=== PATIENT | female | born 1985 ===

== ENCOUNTER → 2024-04-03 09:38 | Outpatient (REF) | payer BC, SELFPAY ==
[2024-04-03 10:38] LABS: % Basophils 0.5 % (0-2); % Eosinophils 4.4 % (0-6); % Immature Granulocytes 0.4 % (0-0.5); % Lymphocytes 28.1 % (20.5-51.1); % Monocytes 5.6 % (1.7-9.3); Absolute Eosinophils 0.4 10^3/uL (0-0.7); Absolute Lymphocytes 2.3 10^3/uL (1.2-3.4); Absolute Monocytes 0.5 10^3/uL (0.1-0.6); Absolute Neutrophils 4.9 10^3/uL (1.4-6.5); Hematocrit 44.1 % (37.0-47.0); Hemoglobin 15.3 g/dL (12.0-16.0); Mean Corp Hgb Conc. 34.7 g/dL (33.0-37.0); Mean Corpuscular Hgb 31.4 pg (27.0-31.0); Mean Corpuscular Volume 90.6 fL (81.0-99.0); Mean Platelet Volume 11.3 fL (7.4-10.4); Nucleated Red Blood Cells % 0 %; Platelet Count 143 10^3/uL (130-400); Red Blood Cell Count 4.87 10^6/uL (4.20-5.40); Red Cell Dist. Width 13.2 % (11.5-14.5)
[2024-04-03 11:05] LABS: ALT (SGPT) 11 U/L (0-35); AST (SGOT) 20 U/L (14-36); Alkaline Phosphatase 71 U/L (38-126); Blood Urea Nitrogen 12 mg/dl (7-17); Calcium 10.4 mg/dl (8.4-10.2); Carbon Dioxide 26 mmol/L (22-30); Chloride 105 mmol/L (98-107); Glucose 81 mg/dl (70-99); HDL Cholesterol 53 mg/dl; LDL Cholesterol, Calculated 131 mg/dl; Potassium 4.5 mmol/L (3.5-5.1); Sodium 143 mmol/L (135-145); Total Bilirubin 0.7 mg/dl (0.2-1.3); Total Cholesterol 200 mg/dl (50-199); Total Protein 7.3 g/dl (6.3-8.2); Triglyceride 84 mg/dl (10-149); Very Low Density Lipoprotein 16 mg/dl (0-30); eGFR > 60.00
[2024-04-03 11:23] LABS: Vitamin D, 25-OH*** 28.4 ng/mL (30-80)
[2024-04-03 11:36] LABS: TSH 0.57 uIU/ml (0.47-4.68)
== END ==
LOC: REG 09:38
PROVIDERS: ATTENDING PHYSICIAN Family Medicine
DX: Z00.00 Encounter for general adult medical examination without abnormal findings (principal)
CPT/HCPCS: 36415; 80053; 80061; 82306; 84443; 85025

== ENCOUNTER 2024-06-10 07:19 | Emergency (ER) | payer OTHER, SELFPAY ==
[2024-06-10 07:20] VITALS: BP 133/88
--- NOTE | 2024-06-10 08:06 | ED.GENMED ---
History of Present Illness
<Marlyn Vo MD, Resident - Last Filed: 06/10/24 10:41>
General
Chief Complaint: Eye Problems
Source: patient
Exam Limitations: none
Time Seen by Provider: 06/10/24 07:25
History of Present Illness
History of Present Illness:
This is a 39-year-old female patient with no significant PMH who presents to the ED with concerns of eye trauma. She states that around 15 minutes ago while she was at work ([employer]), she had hit her right eye with the corner of
it wooden chair. She does admit to having severe nausea and a right-sided headache with a throbbing sensation. She states that she did not notice any bleeding. She denies any vision changes or vomiting. She is able to slowly open her right eye
although with difficulty and pain.
Past History
<Marlyn Vo MD, Resident - Last Filed: 06/10/24 10:41>
Past History
ED Past Medical History: Other (IBS, endometriosis)
ED Past Surgical History: None
Social History
Tobacco: Non-smoker
Alcohol: None
Drug: None
Employment: Employed
Review of Systems
<Marlyn Vo MD, Resident - Last Filed: 06/10/24 10:41>
Review of Systems
Constitutional: Denies fever or chills
EENT: Reports other (R eye pain)
Cardiac: Denies chest pain
ABD/GI: Denies abdominal pain
Phy Exam
<Marlyn Vo MD, Resident - Last Filed: 06/10/24 10:41>
General Physical Exam
General Presentation: well appearing
Eye Exam
Eye Exam: PERRL, EOMI, conjunctiva normal, globe normal and visual acuity normal
Right 20/: 20
Left 20/: 20
Cornea Exam: abrasion: Right (around 6 o'clock position)
Type of Exam: slit lamp and fluorescein
Tonometry: Side: Bilateral ( Right- 21, Left-13)
Cardiovascular Exam
Cardiovascular Exam: regular rate/rhythm
Heart Sounds: normal
Pulmonary Exam
Pulmonary Exam: lungs clear
Gastrointestinal Exam
Gastrointestinal Exam: non tender, soft and non distended
Neurological Exam
Neurological Exam: oriented x3
Musculoskeletal Exam
Musculoskeletal Exam: no edema
Skin Exam
Skin Exam: warm/dry
Course
<Marlyn Shasha Vo MD, Resident - Last Filed: 06/10/24 10:41>
Orders/Labs/Results
Orders:
Orders
06/10/24 07:43
Ondansetron Orally Disint [Zofran Odt (Orally Disintegrating)] 4 mg .ROUTE .STK-MED ONE
06/10/24 08:03
CT Orbits W/o Iv Contrast Urgent
Comment:
Reason For Exam: r eye trauma
Ibuprofen [Motrin] 600 mg PO NOW STA
Test Result ONCE
06/10/24 08:09
HCG, Urine Qualitative Screen Urgent
Date Specimen was Collected: 06/10/24
Time Specimen was Collected: 08:06
06/10/24 08:14
Ondansetron Orally Disint [Zofran Odt (Orally Disintegrating)] 4 mg PO NOW STA
Vital Signs
Initial and Last Documented VS:
Initial Vital Signs
Temp Pulse Resp BP Pulse Ox
98.4 F 95 16 133/88 98
06/10/24 07:20 06/10/24 07:20 06/10/24 07:20 06/10/24 07:20 06/10/24 07:20
Last Documented Vital Signs
Temp Pulse Resp BP Pulse Ox
98.4 F 64 16 116/63 100
06/10/24 07:20 06/10/24 09:30 06/10/24 09:30 06/10/24 09:30 06/10/24 09:30
<Yrn Medina DO - Last Filed: 06/10/24 13:11>
Orders/Labs/Results
Orders:
Orders
06/10/24 07:43
Ondansetron Orally Disint [Zofran Odt (Orally Disintegrating)] 4 mg .ROUTE .ST-MED ONE
06/10/24 08:03
CT Orbits W/o Iv Contrast Urgent
Comment:
Reason For Exam: r eye trauma
Ibuprofen [Motrin] 600 mg PO NOW STA
Test Result ONCE
06/10/24 08:09
HCG, Urine Qualitative Screen Urgent
Date Specimen was Collected: 06/10/24
Time Specimen was Collected: 08:06
06/10/24 08:14
Ondansetron Orally Disint [Zofran Odt (Orally Disintegrating)] 4 mg PO NOW STA
Vital Signs
Initial and Last Documented VS:
Initial Vital Signs
Temp Pulse Resp BP Pulse Ox
98.4 F 95 16 133/88 98
06/10/24 07:20 06/10/24 07:20 06/10/24 07:20 06/10/24 07:20 06/10/24 07:20
Last Documented Vital Signs
Temp Pulse Resp BP Pulse Ox
98.4 F 64 16 116/63 100
06/10/24 07:20 06/10/24 09:30 06/10/24 09:30 06/10/24 09:30 06/10/24 09:30
<Marlyn Vo MD, Resident - Last Filed: 06/10/24 10:41>
MDM/Problems Addressed
Differential Diagnosis Includes:
Corneal abrasion, retro-orbital hematoma
<Marlyn Vo MD, Resident - Last Filed: 06/10/24 10:41>
*Critical Care Note
Total Time (30-74mins, 75-104mins- exclusive of procedures): Not Applicable
<Marlyn Vo MD, Resident - Last Filed: 06/10/24 10:41>
Update Note
Update Note:
Vital stable but patient continued to have severe nausea, was given Zofran. Slit-lamp examination with fluorescein done along with tonometry. Patient was able to open eye much more comfortably after topical anesthetic. Small abrasion noticed in
the 6 o'clock position in the right eye. Due to patient's continued headache and increased pressure-like feeling on the right side, CT orbit which was unremarkable. Pt discharged with antimicrobial eyedrops and advised to contact system support technician to
make an appointment as soon as possible.
ED Attending Note
<Marlyn oV MD, Resident - Last Filed: 06/10/24 10:41>
-
Portions of this chart may have been created with voice recognition software.� Occasional wrong word or��sound alike� substitutions may have occurred due to the inherent limitations of voice recognition software.
<Yrn Medina, - Last Filed: 06/10/24 13:11>
ED Attending Note
Patient seen and examined by attending physician: Yes
I performed the substantive portion of visit, reviewed & personally made and approve the management plan that is documented in note by myself or JONATHAN.: Yes
ED Attending Note:
I agree with Dr. Vo's note
Patient presents for evaluation after injury to right eye. Patient was bending over and struck her right eye/orbit on the edge of a counter or table. Patient complaining of the pressure type discomfort behind her eye as well as pain in the eye.
Vision is not blurred but she does feel very nauseous. She does not wear any corrective lenses.
General: Awake, Alert, Oriented X3. No acute distress.
Vitals: unremarkable
Head: Atraumatic
Eyes: Pupils equal, EOMI, mild ecchymosis and swelling around the right orbit. Slit-lamp exam shows the anterior chamber to appear normal. Iris appears normal. Intraocular pressures 22 on the right and 13 on the left. Fluorescein staining
identifies a very small linear abrasion around the 6:00 area.
Throat: Airway intact, no exudates
Neck: Trachea midline
Will prescribe antibiotic drops for corneal abrasion. Ophthalmology follow-up with Dr. Davidson for borderline intraocular pressure on the right.
Discharge Plan
Departure
Patient Disposition: Home (Routine Discharge)
Date of Disposition: 06/10/24
Time of Disposition: 10:13
Patient with high blood pressure during this ER visit?: No
Discharge Problem:
Corneal abrasion
Prescriptions:
New
polymyxin B sulf-trimethoprim 10,000 unit- 1 mg/mL drops
1 drp ophthalmic (eye) QID 5 Days Qty: 10 0RF
No Action
Berine
1 cap PO HS
ibuprofen [Advil Liqui-Gel] 200 MG capsule
600 mg PO Q4H PRN (Reason: cramps)
famotidine 20 MG tablet
20 mg PO BID PRN (Reason: stomach)
Referrals:
Donita Davidson MD [Active] -
UNKNOWN - PT DOES,NOT KNOW [Family Provider] -
Activity Restrictions/Additional Instructions:
Please contact to make an appointment with the system support technician as soon as possible and follow under their care as per recommendations. Use eyedrops as prescribed. May use [id number] pain medications such as Advil.
Interventions
Interventions:
*Risk Screen - Suicide Last Done: 06/10/24 07:20
*General Assessment Last Done: 06/10/24 07:20
*Neglect/Abuse Screening Last Done: 06/10/24 07:20
ED- Fall Risk Assessment Last Done: 06/10/24 09:30
*ED COVID-19 Vaccine History Last Done: 06/10/24 07:33
*Nursing Disposition Last Done: 06/10/24 10:24
Discharge Date and Time
Discharge Date/Time: 06/10/24 10:24
Print Language: CHINESE
[2024-06-10] MEDS: MOTRIN 600 MG PO (08:13)
[2024-06-10] MEDS: ZOFRAN ODT (ORALLY DISINTEGRATING) 4 MG PO (08:15)
[2024-06-10 08:18] LABS: HCG, Urine Qualitative Screen Negative
[2024-06-10 09:30] VITALS: BP 116/63
== END 2024-06-10 10:24 | disposition home or self-care (01) ==
LOC: EMR 07:19
PROVIDERS: EMERGENCY PHYSICIAN Emergency Medicine
DX: S05.01XA Injury of conjunctiva and corneal abrasion without foreign body, right eye, initial encounter (principal); R51.9 Headache, unspecified; W22.03XA Walked into furniture, initial encounter; Y92.238 Other place in hospital as the place of occurrence of the external cause; Y99.0 Civilian activity done for income or pay
CPT/HCPCS: 99284; 70480; 81025

== ENCOUNTER → 2025-04-01 08:56 | Outpatient (REF) | payer BC, SELFPAY ==
[2025-04-01 10:29] LABS: Hematocrit 46.0 % (37.0-47.0); Hemoglobin 15.2 g/dL (12.0-16.0); Mean Corp Hgb Conc. 33.0 g/dL (33.0-37.0); Mean Corpuscular Volume 94.5 fL (81.0-99.0); Nucleated Red Blood Cells % 0 %; Platelet Count 201 10^3/uL (130-400); Red Cell Dist. Width 12.6 % (11.5-14.5)
[2025-04-01 10:55] LABS: ALT (SGPT) 16 U/L (0-35); AST (SGOT) 19 U/L (14-36); Albumin 4.9 g/dl (3.5-5.0); Alkaline Phosphatase 59 U/L (38-126); Blood Urea Nitrogen 12 mg/dl (7-17); Calcium 10.0 mg/dl (8.4-10.2); Carbon Dioxide 29 mmol/L (22-30); Chloride 106 mmol/L (98-107); Glucose 82 mg/dl (70-99); HDL Cholesterol 56 mg/dl; LDL Cholesterol, Calculated 100 mg/dl; Potassium 5.3 mmol/L (3.5-5.1); Sodium 142 mmol/L (135-145); Total Protein 7.4 g/dl (6.3-8.2); Very Low Density Lipoprotein 16 mg/dl (0-30); eGFR > 60.00
[2025-04-01 11:09] LABS: Vitamin D, 25-OH*** 44.6 ng/mL (30-80)
[2025-04-01 11:22] LABS: TSH 1.00 uIU/ml (0.47-4.68)
== END ==
LOC: REG 08:56
PROVIDERS: ATTENDING PHYSICIAN Family Medicine
DX: E55.9 Vitamin D deficiency, unspecified (principal); Z00.00 Encounter for general adult medical examination without abnormal findings
CPT/HCPCS: 36415; 80053; 80061; 82306; 84443; 85025

== ENCOUNTER → 2025-06-04 15:33 | Outpatient (REF) | payer BC, SELFPAY | LOC: WDC 15:33 | PROVIDERS: ATTENDING PHYSICIAN Family Medicine | DX: Z12.31 Encounter for screening mammogram for malignant neoplasm of breast (principal) | CPT/HCPCS: 77063; 77067 ==